=== PATIENT | male | born 1935 | race Caucasian/White ===

== ENCOUNTER → 2021-07-05 | Outpatient (CLI) | payer MEDICARE ==
--- NOTE | 2021-07-05 10:04 | RAD ---
AP and Lateral Views of the Chest 07/05/2021 10:00 AM Indication: Reason: EMPHYSEMA / Comparison: Chest radiograph February 03, 2006 Findings: There is no pneumothorax or pleural effusion. Heart size is normal. No acute focal infiltra mirtha are identified. Diffuse interstitial coarsening is present possibly representing a component of f ibrotic change or emphysema. No acute osseous abnormalities are identified. IMPRESSION: 1. No evidence of acute cardiac pulmonary process 2. Diffuse interstitial coarsening possibly representing fibrotic change or emphysema Electronically signed by: Ariel Hayes MD (07/05/2021 10:02 AM) [id number]
== END ==
LOC: RAD 09:24
PROVIDERS: ATTEND Internal Medicine Pulmonary Disease
DX: J43.9 Emphysema, unspecified (principal)
CPT/HCPCS: 71046